=== PATIENT | female | born 1985 | race Caucasian/White ===

== ENCOUNTER 2019-05-22 19:30 | Inpatient (IN) | payer BC ==
[~2019-05-22 19:30] MED LIST: Bupivacaine 0.25% 10 ML SDV ONE
[2019-05-22] MEDS ORDERED: Lidocaine 1% 50 ML MDV INJECT ONE (19:47)
[2019-05-22] MEDS ORDERED: Nalbuphine 10 MG/1 ML Vial IVPUSH PRN (19:47)
[2019-05-22] MEDS ORDERED: Sodium Chloride 0.9% 10 ML Syringe FLUSH PRN (19:47)
[2019-05-22] MEDS: Lactated Ringers 1,000 ML IV SCH ×3 (19:53→21:00)
[2019-05-22] MEDS ORDERED: Oxytocin/Lactated Ringers 10 UNIT/1,000 ML BAG IV SCH (20:00)
[2019-05-22] MEDS ORDERED: Bupivacaine/fentaNYL/NS 100 ML Bag EPIDUR PRN (20:13)
[2019-05-22] MEDS ORDERED: ePHEDrine 50 MG/ML SDV IVPUSH PRN (20:13)
[2019-05-22] MEDS ORDERED: fentaNYL 100 MCG/2 ML SDV EPIDUR PRN (20:13)
[2019-05-22] MEDS ORDERED: diphenhydrAMINE 50 MG/ML SDV IVPUSH PRN (20:13)
--- NOTE | 2019-05-22 20:34 | PCM.LDHP ---
L&D History of Present Illness - General Date of Service: 05/22/19 Admit Problem/Dx: Patient Status Order with Admit Dx/Problem 05/22/19 19:47 Patient Status [ADT] Routine Admission Diagnosis/Problem Admission Diagnosis/Problem Active labor 05/22/19 20:21 Leticia is a 33-year-old 3 para 2001 white female admitted in active labor with cervical dilation of 4 cm. She has an CASE of 05/27/2019 placer presently at 39-2/7 weeks gestational age. Patient was seen in clinic earlier today at which time her cervix was 3 cm dilated, 80% effaced, very soft, -3, mid position. She is rhett every 3 minutes. She is breathing through them and desires epidural at this time. No drains are intact. television presenter history history 3 para 2001. ACSE 05/27/2019 based upon ultrasound on 10/04/2018 at 6-3/7 weeks gestational age. Follow-up ultrasounds 3 on 2018, 01/11/2019 and 2018 essentially support the first ultrasound dating. course has been relatively unremarkable. She was seen for her first visit at 6 weeks. From that time on she was seen on a regular basis. Her weight gain was from 179.8 pounds 2 213 pounds. Blood pressure and other vital signs were stable. Fundal height growth was appropriate. She declined genetic testing. She desires epidural in labor and delivery. Her [place] depression screening score on 12/19/2018 was 1. Her group B strep screen was negative. Has a history of urinary tract infections which are recurrent in nature. Urinalysis 7 normal throughout the . Patient had nausea and emesis in early . She is Rh- and did receive RhoGAM on at 28 weeks gestational age. The patient's past obstetric history is as follows: Menarche age 13. Cycles every 28 days. No control time of conception. Last menstrual period was unknown. Deliveries include the followin. Female infant born 10/31/2007 at 40 weeks gestational age13 hours of labor. 7 lbs. 1 oz. Delivered in [place], [place]. Child's name is Joselyn. 2. Female infant born on 09/15/2011 at 40 weeks [id number] hours of labor. 7 lbs. 1 oz. Delivered in [place], [place]. Child's name is Avaya. Laboratory testing: Blood is A- with a negative antibody screen. First hemoglobin is 13.4 g/dL. Platelets are 266,000. Rubella immune. RPR is nonreactive. Urine culture was negative. Hepatitis B surface antigen and HIV assays were both negative. Chlamydia and gonorrhea were both negative. Second trimester labs showed hemoglobin which was 10.8 g she deciliter and platelets are 239,000. Her diabetic screen was 88 which is negative. Group B strep screen done on 05/02/2019 was negative. Allergies: Ceftin which causes a rash Medications: 1. vitamins 1 daily Past medical history: 1. Vaginal delivery 2 as above 2. Allergies 3. Kidney stones Past surgical history: 1. Cornea transplant 2015 and 2017 2. Lithotripsy for kidney stones. Family history: Father's secondary to an AL at age 47. Mother is alive and well. 3/2 sisters are alive and well. Maternal grandmother is secondary to old age. Maternal grandfather secondary to heart disease. Paternal grandmother secondary to old age. Paternal grandfather secondary to diabetes. An aunt and uncle with history of blood clots. No anesthesia, bleeding, -related problems noted. Social history: Patient is . is [employer] Best. She does not use any significant loss of alcohol, drugs or tobacco. She works for [employer]. She lives in [place], [place]. Review of systems: In general patient has no complaints. He is an active. Patient reports contractions that are getting start to the point where they sometimes take her breath away. Skin: Negative Lungs: No infectious symptoms or shortness of breath Cardiovascular: No chest pain or exercise intolerance Breasts: No lumps, changes in size, pain, dimpling, discharge or axillary or supraclavicular concerns. GI: Negative : Changes associated with . Musculoskeletal: Negative Neurological: Negative In general the patient is well-developed, well-nourished, pleasant female of stated age in no acute distress. Skin is warm dry without lesions. HEENT, neck and back within normal limits. Lungs are clear with good breath sounds in all lung romero. Breast exam is done at first medical visit and was normal. Not repeated at this time Cardiovascular exam shows regular and rhythm without murmurs. Abdomen is gravid with fundal height earlier today at 37 cm. Baby in vertex presentation. Genital exam earlier today shows cervix to be 3 cm, 80%, very soft, -3, mid position. Extremities and neurological exam are grossly within normal limits. Source of Information: Patient History Limitations: Reports: No Limitations - Related Data Allergies/Adverse Reactions: Allergies Allergy/AdvReac Type Severity Reaction Status Date / Time No Known Allergies Allergy Verified 05/22/19 19:50 H&P Review of Systems - Review of Systems: Review Of Systems: See Below L&D Exam - Exam Exam: See Below - Patient Data Lab Results Last 24 hrs: Laboratory Results - last 24 hr 05/22/19 Range/Units 19:55 WBC 14.19 H (3.98-10.04) K/mm3 RBC 4.30 (3.98-5.22) M/mm3 Hgb 11.4 D (11.2-15.7) gm/L Hct 36.1 (34.1-44.9) % MCV 84.0 D (79.4-94.8) fl MCH 26.5 (25.6-32.2) pg MCHC 31.6 L (32.2-35.5) g/dl RDW Std Deviation 49.4 H (36.4-46.3) fL Plt Count 254 (182-369) K/mm3 MPV 10.6 (9.4-12.3) fl Result Diagrams: 05/22/19 19:55 Problem List Initiated/Reviewed/Updated: Yes Orders Last 24hrs: Active Orders 24 hr Category Date Time Status Patient Status [ADT] Routine ADT 05/22/19 19:47 Active Activity as Tolerated [RC] PFP Care 05/22/19 19:47 Active Communication Order [RC] ASDIRECTED Care 05/22/19 19:47 Active Heart Tones [RC] ASDIRECTED Care 05/22/19 19:48 Active Non Stress Test [RC] PER UNIT ROUTINE Care 05/22/19 19:47 Active Notify Provider [RC] ASDIRECTED Care 05/22/19 20:13 Active Notify Provider [RC] PFP Care 05/22/19 19:47 Active Notify Provider [RC] PRN Care 05/22/19 19:47 Active Peripheral IV Care [RC] . DIRECTED Care 05/22/19 19:48 Active Pump Management, Intrathecal [RC] ASDIRECTED Care 05/22/19 19:48 Active Urinary Catheter Assessment [RC] ASDIRECTED Care 05/22/19 19:47 Active Vital Signs [RC] PER UNIT ROUTINE Care 05/22/19 19:47 Active Regular Diet [DIET] Diet 05/22/19 Breakfast Active BLOOD BANK HOLD SPECIMEN [BBK] Stat Lab 05/22/19 19:47 Ordered RAPID PLASMA REAGIN,RPR [CHEM] Stat Lab 05/22/19 19:55 Received Bupivacaine/fentaNYL/NS [fentaNYL/Bupivacaine/NS 2 MCG- Med 05/22/19 20:13 Active 0.125% 100 ML] 100 ml EPIDUR ASDIRECTED PRN Lactated Ringers [Ringers, Lactated] 1,000 ml Med 05/22/19 20:00 Active IV ASDIRECTED Nalbuphine [Nubain] Med 05/22/19 19:47 Active 10 mg IVPUSH Q2H PRN Oxytocin/Lactated Ringers [Pitocin in LR 10 Units/1,000 Med 05/22/19 20:00 Active ML] 10 unit in 1,000 ml IV .CONTINUOUS Sodium Chloride 0.9% [Saline Flush] Med 05/22/19 19:47 Active 10 ml FLUSH ASDIRECTED PRN diphenhydrAMINE [Benadryl] Med 05/22/19 20:13 Active 25 mg IVPUSH Q6H PRN ePHEDrine [ePHEDrine sulfate] Med 05/22/19 20:13 Active 5 mg IVPUSH ASDIRECTED PRN fentaNYL [Sublimaze] Med 05/22/19 20:13 Active 100 mcg EPIDUR Q3H PRN Electronic Heart Tones Ext w TOCO [WOMSER] Oth 05/22/19 19:47 Ordered Routine Electronic Heart Tones Internal [WOMSER] Per Unit Oth 05/22/19 19:47 Ordered Routine Peripheral IV Insertion Adult [OM.PC] Routine Oth 05/22/19 19:47 Ordered Resuscitation Status Routine Resus Stat 05/22/19 19:47 Ordered Medication Orders Diphenhydramine HCl (Benadryl) 25 mg IVPUSH Q6H PRN PRN Reason: pruritis Ephedrine Sulfate (Ephedrine Sulfate) 5 mg IVPUSH ASDIRECTED PRN PRN Reason: Hypotension Fentanyl (Sublimaze) 100 mcg EPIDUR Q3H PRN PRN Reason: Pain Fentanyl/Bupivacaine HCl (Fentanyl/Bupivacaine/Ns 2 Mcg-0.125% 100 Ml) 100 ml EPIDUR ASDIRECTED PRN PRN Reason: Pain Lactated Ringer's (Ringers, Lactated) 1,000 mls @ 100 mls/hr IV ASDIRECTED GARY Last Admin: 05/22/19 19:53 Dose: 999 mls/hr Oxytocin/Lactated Ringer's (Pitocin In Lr 10 Units/1,000 Ml) 10 unit in 1,000 mls @ 500 mls/hr IV .CONTINUOUS GARY Nalbuphine HCl (Nubain) 10 mg IVPUSH Q2H PRN PRN Reason: Pain Sodium Chloride (Saline Flush) 10 ml FLUSH ASDIRECTED PRN PRN Reason: Keep Vein Open Assessment/Plan Comment:: 39-2/7 week intrauterine , active labor, change in cervical dilation 2. Group B strep screen negative 3. Patient desires epidural in labor and delivery 4. Patient plans to breast-feed 5. RPR is nonreactive, rubella titer shows immunity 6. Patient received her T dap on 05/06/2019 Plan: 1. Anticipate normal spontaneous vaginal delivery 2. Epidural per patient desire 3. Routine labor care 4. Support breast-feeding decision. 5. RPR and CBC upon admission
--- NOTE | 2019-05-22 20:57 | PCM.PREANE ---
Preanesthetic Assessment - Procedure Proposed Procedure: fernando - Anesthesia/Transfusion/Family Hx Anesthesia History: Prior Anesthesia Without Reaction Family History of Anesthesia Reaction: No Transfusion History: No Prior Transfusion(s) - Review of Systems General: No Symptoms Pulmonary: No Symptoms Cardiovascular: No Symptoms Gastrointestinal: No Symptoms Neurological: No Symptoms Other: Reports: None - Physical Assessment Vital Signs: 99% 20 135/55 85 Height: 5 ft 8 in Weight: 97.976 kg ASA Class: 2 Mental Status: Alert & Oriented x3 Airway Class: Mallampati = 1 Dentition: Reports: Normal Dentition Thyro-Mental Finger Breadths: 3 Mouth Opening Finger Breadths: 3 ROM/Head Extension: Full Lungs: Clear to Auscultation, Normal Respiratory Effort Cardiovascular: Regular Rate, Regular Rhythm - Lab Values: Laboratory Last Values WBC 14.19 K/mm3 (3.98-10.04) H 05/22/19 19:55 RBC 4.30 M/mm3 (3.98-5.22) 05/22/19 19:55 Hgb 11.4 gm/L (11.2-15.7) D 05/22/19 19:55 Hct 36.1 % (34.1-44.9) 05/22/19 19:55 MCV 84.0 fl (79.4-94.8) D 05/22/19 19:55 MCH 26.5 pg (25.6-32.2) 05/22/19 19:55 MCHC 31.6 g/dl (32.2-35.5) L 05/22/19 19:55 RDW Std Deviation 49.4 fL (36.4-46.3) H 05/22/19 19:55 Plt Count 254 K/mm3 (182-369) 05/22/19 19:55 MPV 10.6 fl (9.4-12.3) 05/22/19 19:55 - Allergies Allergies/Adverse Reactions: Allergies Allergy/AdvReac Type Severity Reaction Status Date / Time No Known Allergies Allergy Verified 05/22/19 19:50 - Blood Blood Available: No - Acknowledgements Anesthesia Type Planned: Epidural Pt an Appropriate Candidate for the Planned Anesthesia: Yes Alternatives and Risks of Anesthesia Discussed w Pt/Guardian: Yes Pt/Guardian Understands and Agrees with Anesthesia Plan: Yes PreAnesthesia Questionnaire HEENT History: Reports: None Cardiovascular History: Reports: None Respiratory History: Reports: None Gastrointestinal History: Reports: GERD (with preg) Genitourinary History: Reports: Other (See Below) (lithotripsy) : 3 (39 weeks 2) Para: 2 Musculoskeletal History: Reports: None Neurological History: Reports: None Endocrine/Metabolic History: Reports: None - History Comment History Comment: vits - SUBSTANCE USE Smoking Status *Q: Never Smoker Tobacco Use Within Last Twelve Months: No Second Hand Smoke Exposure: No Days Per Week of Alcohol Use: 0 Recreational Drug Use History: No - CURRENT (IN HOUSE) MEDS Current Meds: Current Medications Diphenhydramine HCl (Benadryl) 25 mg IVPUSH Q6H PRN PRN Reason: pruritis Ephedrine Sulfate (Ephedrine Sulfate) 5 mg IVPUSH ASDIRECTED PRN PRN Reason: Hypotension Fentanyl (Sublimaze) 100 mcg EPIDUR Q3H PRN PRN Reason: Pain Last Admin: 05/22/19 20:50 Dose: 100 mcg Fentanyl/Bupivacaine HCl (Fentanyl/Bupivacaine/Ns 2 Mcg-0.125% 100 Ml) 100 ml EPIDUR ASDIRECTED PRN PRN Reason: Pain Last Admin: 05/22/19 20:51 Dose: 100 ml Lactated Ringer's (Ringers, Lactated) 1,000 mls @ 100 mls/hr IV ASDIRECTED GARY Last Admin: 05/22/19 20:30 Dose: 999 mls/hr Oxytocin/Lactated Ringer's (Pitocin In Lr 10 Units/1,000 Ml) 10 unit in 1,000 mls @ 500 mls/hr IV .CONTINUOUS GARY Nalbuphine HCl (Nubain) 10 mg IVPUSH Q2H PRN PRN Reason: Pain Sodium Chloride (Saline Flush) 10 ml FLUSH ASDIRECTED PRN PRN Reason: Keep Vein Open Discontinued Medications Lidocaine HCl (Xylocaine 1%) 20 ml INJECT ONETIME ONE Stop: 05/22/19 19:48
--- NOTE | 2019-05-22 23:09 | PCM.SN ---
- Free Text/Narrative Note: Delivery note: Leticia is a 33-year-old 3 para 2002 white female admitted in active labor with cervical dilation of 4 cm on the evening of 05/22/2019.. She has an CASE of 05/27/2019 placing her presently at 39-2/7 weeks gestational age. Patient was seen in clinic earlier today at which time her cervix was 3 cm dilated, 80% effaced, very soft, -3, mid position. She is rhett every 3 minutes. Patient progressed rapidly to complete cervical dilation after artificial rupture membranes resulted in clear amniotic fluid. She obtained an epidural prior to the rupture membranes for labor analgesia. Patient pushed for 3 contractions and delivered a viable, reina, 3890 g (8 pound 9.2 ounce) male with Apgars of 8 and 9, a length of 20.75 inches in a left occiput anterior position at 20-39 hours on 05/22/2019. The baby's nose and mouth were bulb suctioned. The cord was clamped 2 after approximately 1 minute of pulsation and the baby was then handed off to be placed in the warmer per patient desire. The father cut the baby's umbilical cord. IV Pitocin was increased to 500 mL an hour to facilitate increase in uterine tone and decrease likelihood of bleeding. Cord blood was obtained. The placenta delivered in a Hardy presentation, appeared intact and complete and was discarded per patient desire. It appeared normal. The patient had a small vaginal introital laceration starting at approximately the 3 o'clock position extending down posterior to about the 7 o' clock position. This was repaired with interrupted 3-0 Monocryl sutures. She tolerated this well and labor epidural was used for anesthesia. Estimated blood loss was 100 mL. Patient plans to bottle feed. Condition: Good.
[2019-05-22] MEDS ORDERED: Docusate Sodium 100 MG Cap PO PRN (23:55)
[2019-05-22] MEDS ORDERED: Lanolin 100% Cream 7 GM Tube TOP PRN (23:55)
[2019-05-22] MEDS ORDERED: Witch Hazel Medicated Pads 40/Jar TOP PRN (23:55)
[2019-05-22] MEDS ORDERED: Benzocaine/Menthol 20%-0.5% Spray 56 GM Canister TOP PRN (23:55)
[2019-05-23] MEDS: Ibuprofen 600 MG Tab PO PRN ×5 (01:02→20:09)
--- NOTE | 2019-05-23 06:48 | PCM48HPAN ---
Post Anesthesia Note - EVALUATION WITHIN 48HRS OF ANESTHETIC Vital Signs in Normal Range: Yes Patient Participated in Evaluation: Yes Respiratory Function Stable: Yes Airway Patent: Yes Cardiovascular Function Stable: Yes Hydration Status Stable: Yes Pain Control Satisfactory: Yes Nausea and Vomiting Control Satisfactory: Yes Mental Status Recovered: Yes Vital Signs: Last Vital Signs Temp 37.1 C 05/23/19 02:34 Pulse 72 05/23/19 02:34 Resp 14 05/23/19 02:34 BP 104/45 L 05/23/19 02:34 Pulse Ox 97 05/23/19 02:34
[2019-05-23] MEDS: Acetaminophen 325 MG Tab PO PRN (15:20)
[2019-05-24] MEDS: Ibuprofen 600 MG Tab PO PRN ×2 (03:06→08:15)
--- NOTE | 2019-05-24 05:25 | PCM.DCSUM1 ---
Discharge Summary - Hospital Course Free Text/Narrative:: te: Leticia is a 33-year-old 3 para 2002 white female admitted in active labor with cervical dilation of 4 cm on the evening of 05/22/2019.. She has an CASE of 05/27/2019 placing her presently at 39-2/7 weeks gestational age. Patient was seen in clinic earlier today at which time her cervix was 3 cm dilated, 80% effaced, very soft, -3, mid position. She is rhett every 3 minutes. Patient progressed rapidly to complete cervical dilation after artificial rupture membranes resulted in clear amniotic fluid. She obtained an epidural prior to the rupture membranes for labor analgesia. Patient pushed for 3 contractions and delivered a viable, reina, 3890 g (8 pound 9.2 ounce) male with Apgars of 8 and 9, a length of 20.75 inches in a left occiput anterior position at 20-39 hours on 05/22/2019. The baby's nose and mouth were bulb suctioned. The cord was clamped 2 after approximately 1 minute of pulsation and the baby was then handed off to be placed in the warmer per patient desire. The father cut the baby's umbilical cord. IV Pitocin was increased to 500 mL an hour to facilitate increase in uterine tone and decrease likelihood of bleeding. Cord blood was obtained. The placenta delivered in a Hardy presentation, appeared intact and complete and was discarded per patient desire. It appeared normal. The patient had a small vaginal introital laceration starting at approximately the 3 o'clock position extending down posterior to about the 7 o' clock position. This was repaired with interrupted 3-0 Monocryl sutures. She tolerated this well and labor epidural was used for anesthesia. Estimated blood loss was 100 mL. Patient plans to bottle feed. Patient is doing well. She is afebrile, vital signs are stable. Ambulating well , voiding without problems and has minimal lochia. She is desiring discharge home. Condition: Good. Diagnosis: Stroke: No - Discharge Data Discharge Date: 05/24/19 Discharge Disposition: Home, Self-Care 01 Condition: Good - Referral to Home Health Primary Care Physician: Godwin Harrison MD - Patient Instructions Diet: Regular Diet as Tolerated Activity: As Tolerated ([place] or tampons until bleeding resolves) Driving: May Drive Today Showering/Bathing: May Shower (May take a bath) Notify Provider of: Fever, Increased Pain, Swelling and Redness, Nausea and/or Vomiting - Discharge Plan Home Medications: Home Meds [id number]/Omega3/Dha/Fish Oil [ Gummies] 1 each PO DAILY 05/22/19 [ History] Acetaminophen [Tylenol] 650 mg PO Q4H PRN tablet 05/24/19 [Rx] Ibuprofen [Motrin] 600 mg PO Q4H PRN tablet 05/24/19 [Rx] Patient Handouts: Vaginal Delivery, Care After Referrals: Godwin Harrison MD [Primary Care Provider] - ([facility] in [place] - Discharge Summary/Plan Comment DC Time >30 min.: No Discharge Summary/Plan Comment: Discharge instructions: 1. Discharge home 2. Diet, activity and follow-up discussed with patient. 3. Precautions given concern increased pain, bleeding, temperature, signs/ symptoms of DVT/PE. 4. Medications per home medication was printed, discussed with and given to the patient. 5. Return to clinic-Dr. Harrison-[facility] in [place], [place] in approximately 2-4 weeks. Diagnosis: Term -delivered Condition: Good - Patient Data Vitals - Most Recent: Last Vital Signs Temp 36.8 C 05/24/19 03:13 Pulse 67 05/24/19 03:13 Resp 15 05/24/19 03:13 BP 128/96 H 05/24/19 03:13 Pulse Ox 99 05/24/19 03:13 Weight - Most Recent: 97.976 kg Med Orders - Current: Current Medications Acetaminophen (Tylenol) 650 mg PO Q4H PRN PRN Reason: mild pain or fever Last Admin: 05/23/19 15:20 Dose: 650 mg Benzocaine/Menthol (Dermoplast Pain Relief Elsa) 0 gm TOP ASDIRECTED PRN PRN Reason: Perineal Comfort Measure Last Admin: 05/23/19 01:02 Dose: 1 can Docusate Sodium (Colace) 100 mg PO BID PRN PRN Reason: Constipation Last Admin: 05/23/19 01:02 Dose: 100 mg Emollient Ointment (Lansinoh Hpa) 0 gm TOP ASDIRECTED PRN PRN Reason: Sore Nipples Ibuprofen (Motrin) 600 mg PO Q4H PRN PRN Reason: Mild pain or fever Last Admin: 05/24/19 03:06 Dose: 600 mg Witch Karen (Tucks) 1 pad TOP ASDIRECTED PRN PRN Reason: Pain Last Admin: 05/23/19 01:03 Dose: 1 container Discontinued Medications Bupivacaine HCl (Sensorcaine-Mpf 0.25%) 10 ml .ROUTE .STK-MED ONE Stop: 05/22/19 00:01 Diphenhydramine HCl (Benadryl) 25 mg IVPUSH Q6H PRN PRN Reason: pruritis Ephedrine Sulfate (Ephedrine Sulfate) 5 mg IVPUSH ASDIRECTED PRN PRN Reason: Hypotension Fentanyl (Sublimaze) 100 mcg EPIDUR Q3H PRN PRN Reason: Pain Last Admin: 05/22/19 20:50 Dose: 100 mcg Fentanyl/Bupivacaine HCl (Fentanyl/Bupivacaine/Ns 2 Mcg-0.125% 100 Ml) 100 ml EPIDUR ASDIRECTED PRN PRN Reason: Pain Last Admin: 05/22/19 20:51 Dose: 100 ml Lactated Ringer's (Ringers, Lactated) 1,000 mls @ 100 mls/hr IV ASDIRECTED GARY Last Admin: 05/22/19 21:00 Dose: 100 mls/hr Oxytocin/Lactated Ringer's (Pitocin In Lr 10 Units/1,000 Ml) 10 unit in 1,000 mls @ 500 mls/hr IV .CONTINUOUS GARY Last Admin: 05/22/19 22:39 Dose: 500 mls/hr Lidocaine HCl (Xylocaine 1%) 20 ml INJECT ONETIME ONE Stop: 05/22/19 19:48 Last Admin: 05/23/19 05:12 Dose: Not Given Nalbuphine HCl (Nubain) 10 mg IVPUSH Q2H PRN PRN Reason: Pain Sodium Chloride (Saline Flush) 10 ml FLUSH ASDIRECTED PRN PRN Reason: Keep Vein Open
[2019-05-24] MEDS: Acetaminophen 325 MG Tab PO PRN (10:12)
== END 2019-05-24 11:00 | disposition home or self-care (01) | DRG 560 ==
LOC: JD.OBCHECK 19:30 → JD.OB 19:34 → JD.OBCHECK 19:47 → JD.OB 20:18 → OBSVTOIN 22:39 → JD.OB 22:40
PROVIDERS: ADMIT Obstetrics & Gynecology; ATTEND Obstetrics & Gynecology
PROC: 10907ZC Drainage of Amniotic Fluid, Therapeutic from Products of Conception, Via Natural or Artificial Opening (ICD-10-PCS; principal; 2019-05-22)
PROC: 0UQGXZZ Repair Vagina, External Approach (ICD-10-PCS; 2019-05-22)
PROC: 10E0XZZ Delivery of Products of Conception, External Approach (ICD-10-PCS; 2019-05-22)
DX: O71.4 Obstetric high vaginal laceration alone (principal); Z3A.39 39 weeks gestation of pregnancy; Z37.0 Single live birth
CPT/HCPCS: 01967; 36415; 51702; 59025; 59409; 85027; 86592; A9270-GY; J2590; J3010; J3490; J7120